=== PATIENT | female | born 1955 | race Native Hawaiian/Other Pacific Islander ===

== ENCOUNTER 2017-01-23 23:14 | Emergency (ER) | payer OTHER ==
[~2017-01-23] VITALS: Ht 154.9 cm; Wt 80.7 kg
[~2017-01-23 23:14] MED LIST: CLARITIN10 MG PO; LOVASTATIN20 MG PO; METF500T PO; TRIA37.541 PO
[2017-01-24 00:34] VITALS: BP 152/77; TEMP 98.4
== END 2017-01-24 00:39 | disposition home or self-care (01) ==
LOC: ED 23:14
DX: S22.089A Unspecified fracture of T11-T12 vertebra, initial encounter for closed fracture (principal); M47.897 Other spondylosis, lumbosacral region; M46.87 Other specified inflammatory spondylopathies, lumbosacral region; K59.00 Constipation, unspecified; W18.09XA Striking against other object with subsequent fall, initial encounter; Y92.098 Other place in other non-institutional residence as the place of occurrence of the external cause
CPT/HCPCS: 36415; 96374; 99284; J1885

== ENCOUNTER → 2017-02-08 20:59 | Outpatient (CLI) | payer OTHER | END | disposition short-term general hospital (02) | LOC: AMB 20:59 | DX: I46.9 Cardiac arrest, cause unspecified (principal) | CPT/HCPCS: A0425; A0427 ==

== ENCOUNTER 2017-02-08 21:05 | Emergency (ER) | payer OTHER ==
[~2017-02-08] VITALS: Ht 162.6 cm; Wt 79.4 kg
[2017-02-08 22:10] LABS: PLATELET COUNT 385 K/uL (152-353)
[2017-02-08 22:12] LABS: POTASSIUM 4.3 mmol/L (3.6-5.2)
== END 2017-02-08 23:59 | disposition expired ==
LOC: ED 21:05
PROC: 5A12012 Performance of Cardiac Output, Single, Manual (ICD-10-PCS; principal; 2017-02-08)
DX: I46.9 Cardiac arrest, cause unspecified (principal)
CPT/HCPCS: 80053; 82550; 82553; 84484; 85007; 85027; 92950; 99291; J0171